=== PATIENT | female | born 1995 | race Caucasian/White ===

== ENCOUNTER 2020-04-10 16:59 | Emergency (ER) | payer BC, SELFPAY ==
[2020-04-10 17:00] VITALS: BP 160/90; PULSE 105; RESP 20; TEMP 37.1; O2SAT 97; BMI 36.8
--- NOTE | 2020-04-10 17:16 | XR_ITS ---
PROCEDURE: XR SHOULDER RT MIN 2V CLINICAL INDICATION: shoulder pain COMPARISON: No exams were available for comparison FINDINGS: No fracture or dislocation. No lytic or blastic change. There is normal mineralization. The joint spaces are well-preserved. No significant degenerative/arthritic changes. No erosive changes evident. Other findings:None. IMPRESSION: No acute findings. Dictated by: Robert Dillon MD 04/11/2020 06:07 Robert Dillon MD in [place] 04/11/2020 06:07
--- NOTE | 2020-04-10 17:24 | [facility].EDUPEXT ---
ED Disposition Clinical Impression: Shoulder injury Qualifiers: Encounter type: initial encounter Laterality: right Qualified Code(s): S49.91XA - Unspecified injury of right shoulder and upper arm, initial encounter Disposition: Home, Self-Care Condition on Discharge: Good Instructions: DI for Shoulder Sprain Referrals: Yaritza Monterroso MD [Physician] - 3 days - Critical Care Critical Care Time: No Attestation: On , the high probability of a clinically significant, sudden or life threatening deterioration of the following system(s) required my full and direct attention, intervention and personal management. The time I documented below is in addition to time spent performing reported procedures but includes the following listed in this critical care notation. Medical Decision Making - [place] Inquiry Pt receiving controlled substance: No Vital Signs: 04/10/20 17:30 Pulse Rate [Right Radial] 110 H Respiratory Rate 18 Blood Pressure [Right Arm] 160/90 H Blood Pressure Mean [Right Arm] 113 Blood Pressure Source [Right Arm] Automatic Cuff Blood Pressure Position [Right Arm] Supine 02 Sat by Pulse Oximetry 99 Oxygen Delivery Method Room Air Orders (Tests/Meds): ORDERS Category Date Time Status Shoulder XR right miminum 2 views [XR shoulder RT min Exams 04/10/20 17:16 Taken 2V] Stat - Radiology Data #1 Image(s): Shoulder Image Reviewed: Yes I reviewed the patient's radiology image Preliminary Findings: Normal/NAD Medical Decision Narrative: 25-year-old female with possible soft tissue or rotator cuff injury to the right shoulder. Shoulder x-ray shows no acute fracture or dislocation. Recommended anti-inflammatories and follow-up outpatient with primary care or orthopedic surgery for further evaluation and management. Neurovascularly intact. Discharged home. Upper Extremity HPI - General Stated Complaint: AO 0121 Injured R Shoulder Time Seen by Provider: 04/10/20 17:24 Mode of Arrival: Ambulatory Source of Information: Patient Limitations: No Limitations - History of Present Illness HPI narrative: This is a 25-year-old aogrb[place]xys[place] female who presents to the emergency department for evaluation of right shoulder pain since March 30. She was trying to throw a cigarette out the window and sustained a extension injury to her shoulder while tossing it out the window. She complains of pain along the front of her shoulder extending along her collarbone and in the back over the shoulder blade. She states any sort of movement makes her pain worse, nothing makes it better. No numbness, tingling, weakness distally. [facility] History - Hepatitis A Screen Attestation statement:: This patient has been screened for Hepatitis A risk factors. I have reviewed the patient's past medical history: Yes (Noncontributory) ROS Obtained: Yes All systems reviewed & no additional complaints Physical Exam - General General appearance: alert, in no apparent distress - Head Head exam: atraumatic, normocephalic - Neck Neck exam: Present: normal inspection, full ROM, trachea midline. Absent: tenderness - Respiratory Respiratory exam: Absent: respiratory distress - Cardiovascular Cardiovascular exam: Present: regular rate - Expanded Upper Extremity Exam Right Shoulder exam: Present: normal inspection, full ROM, tenderness (Around the AC joint and superior border of the scapula). Absent: swelling, ecchymosis, deformity Neurosensory exam: Normal: radial nerve, ulnar nerve, median nerve, axillary nerve Vascular exam: Normal: radial pulse, ulnar pulse - Neurological Exam Neurological exam: Present: alert, oriented X3 - Skin Skin exam: Present: warm, dry
[2020-04-10 17:30] VITALS: BP 160/90; PULSE 110; RESP 18; O2SAT 99
[2020-04-10 18:00] VITALS: BP 150/90; PULSE 99; O2SAT 97
[2020-04-10 18:11] VITALS: BP 150/90; PULSE 106; RESP 20; TEMP 37.1; O2SAT 99
== END 2020-04-10 18:12 | disposition home or self-care (01) ==
PROVIDERS: Emergency Provider Emergency Medicine
DX: S49.91XA Unspecified injury of right shoulder and upper arm, initial encounter (principal); X50.0XXA Overexertion from strenuous movement or load, initial encounter; Y92.89 Other specified places as the place of occurrence of the external cause
CPT/HCPCS: 73030; 99282